=== PATIENT | female | born 1980 | race Caucasian/White ===

== ENCOUNTER 2024-01-10 07:28 | Day surgery (SDC) | payer BC ==
[2024-01-10] MEDS ORDERED: Propofol 200 MG/20 ML SDV IV ONE (07:29)
[2024-01-10] MEDS ORDERED: Midazolam 1 MG/ML 2 ML SDV IV ONE (07:29)
[2024-01-10] MEDS ORDERED: fentaNYL 100 MCG/2 ML SDV IV ONE (07:29)
[2024-01-10] MEDS ORDERED: Sodium Chloride 0.9% 10 ML Syringe FLUSH PRN (07:45)
[2024-01-10] MEDS: Lactated Ringers 1,000 ML IV SCH (08:32)
[2024-01-10] MEDS: Simethicone Drops 40 MG/0.6 ML 30 ML Bottle ONE (09:01)
== END 2024-01-10 10:05 | disposition home or self-care (01) ==
LOC: FB.SDS 07:28
PROVIDERS: ATTEND Surgery
DX: Z12.11 Encounter for screening for malignant neoplasm of colon (principal); G47.00 Insomnia, unspecified; M70.61 Trochanteric bursitis, right hip; Z79.899 Other long term (current) drug therapy; Z91.013 Allergy to seafood; Z91.018 Allergy to other foods; Z88.0 Allergy status to penicillin
CPT/HCPCS: 45378; A9270; J2250; J2704; J3010; J7120; 00812